=== PATIENT | female | born 2000 | race Caucasian/White ===

== ENCOUNTER 2023-04-09 00:01 | Inpatient (IN) | payer OTHER ==
[~2023-04-09] VITALS: Ht 167.6 cm; Wt 83.9 kg
[2023-04-09 01:05] LABS: AMPHETAMINES, URINE NEGATIVE (NEGATIVE); BARBITURATES, URINE NEGATIVE (NEGATIVE); BENZODIAZEPINE, URINE NEGATIVE (NEGATIVE); BUPRENORPHINE, URINE NEGATIVE (NEGATIVE); CANNABINOID, URINE NEGATIVE (NEGATIVE); COCAINE, URINE NEGATIVE (NEGATIVE); ECSTASY, URINE NEGATIVE (NEGATIVE); FENTANYL, URINE NEGATIVE (NEGATIVE); METHADONE, URINE NEGATIVE (NEGATIVE); OPIATES, URINE NEGATIVE (NEGATIVE); OXYCODONE, URINE NEGATIVE (NEGATIVE); PHENCYCLIDINE, URINE NEGATIVE (NEGATIVE)
[2023-04-09 01:27] LABS: ABO A; ANTIBODY SCREEN NEGATIVE; RH POSITIVE
[2023-04-09 01:31] LABS: HEMATOCRIT 31.7 % (35.0-50.0); HEMOGLOBIN 10.4 g/dL (12.0-18.0); MCH 26.7 (27-36); MCHC 32.9 g/dl (30-36); RBC 3.91 M/ul (4.3-5.7); RDW 15.4 (10.5-15.0)
--- NOTE | 2023-04-09 13:00 | NUR ---
04/09/23 1300 Sheets,Jackie 1235 PT ARRIVED TO ROOM WITH OR AND [facility] RN AT BEDSIDE. CHIN LIFT NEEDED OFF AND ON TO MAINTAIN AIRWAY. PT ON RA ON O2 SAT 94%. PT REACTIVE TO PAINFUL STIMULI. 1250 PT WAKES TO VERBAL STIMULI AND REPORTS PAIN 1/10 AND 3/10 WITH FUNDAL CHECKS WHICH IS TOLERABLE FOR HER. REPORTS SMALL AMOUNT OF NAUSEA. RN HELPS BRACE ABD AND PT ENCOURAGED TO COUGH AND DEEP BREATHE, PT ABLE TO DO SO. PT EASILY FALLS BACK TO SLEEP WITH SNORING NOTED.
[2023-04-09 13:17] VITALS: BP 125/58
--- NOTE | 2023-04-09 14:34 | NUR ---
[facility] ROUNDS. 30 MINUTES. FAMILY IN ROOM EXHIBITED STRONG RELATIONAL RESOURCES AND LOW ANXIETY. LISTENED EMPATHETICALLY; FACILITATED STORY TELLING; NORMALIZED PATIENT EXPERIENCE; PROVIDED PRAYER. FAMILY EXPRESSED APPRECIATION.
[2023-04-10 05:54] LABS: HEMATOCRIT 27.9 % (35.0-50.0); HEMOGLOBIN 9.3 g/dL (12.0-18.0); MCHC 33.2 g/dl (30-36); MCV 81.2 fl (81-99); RBC 3.43 M/ul (4.3-5.7); RDW 15.9 (10.5-15.0)
== END 2023-04-11 10:45 | disposition home or self-care (01) | DRG 788 ==
LOC: FBC 00:01
PROVIDERS: ADMIT Obstetrics & Gynecology; ATTEND Obstetrics & Gynecology
PROC: 4A033R1 Measurement of Arterial Saturation, Peripheral, Percutaneous Approach (ICD-10-PCS; 2023-04-09)
PROC: 10D00Z1 Extraction of Products of Conception, Low, Open Approach (ICD-10-PCS; principal; 2023-04-09 11:45)
DX: O99.824 Streptococcus B carrier state complicating childbirth (principal); Z3A.40 40 weeks gestation of pregnancy; Z37.0 Single live birth; O48.0 Post-term pregnancy; O76 Abnormality in fetal heart rate and rhythm complicating labor and delivery; O69.2XX0 Labor and delivery complicated by other cord entanglement, with compression, not applicable or unspecified; Z79.899 Other long term (current) drug therapy
CPT/HCPCS: 01961; 36415; 80307; 82803; 85027; 86850; 86900; 86901; A9270; J0330; J0456; J0690; J1100; J1650; J1885; J2250; J2274; J2405; J2540; J2590; J2704; J2795; J3010; J3105; J7121